=== PATIENT | male | born 1975 | race Two or more races ===

== ENCOUNTER 2017-04-19 08:16 | Emergency (ER) | payer MEDICAID ==
[~2017-04-19] VITALS: Ht 193 cm; Wt 129.7 kg
[2017-04-19 08:27] VITALS: BP 151/95
== END 2017-04-19 10:07 | disposition home or self-care (01) ==
LOC: ER 08:16
DX: R07.89 Other chest pain (principal); F17.210 Nicotine dependence, cigarettes, uncomplicated
CPT/HCPCS: 71101